=== PATIENT | male | born 2005 | race African-American/Black ===

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

== ENCOUNTER 2024-04-23 11:31 | Emergency (ER) | payer OTHER, SELFPAY ==
[2024-04-23] MEDS ORDERED: Ondansetron ODT 4 MG TAB ONE (11:55)
== END 2024-04-23 12:38 | disposition home or self-care (01) ==
LOC: BURERS 11:31
DX: J10.1 Influenza due to other identified influenza virus with other respiratory manifestations (principal)
CPT/HCPCS: 87428; 99283; Q0162